=== PATIENT | male | born 1975 | race Caucasian/White ===

== ENCOUNTER 2016-04-08 12:27 | Emergency (ER) | payer BC ==
[2016-04-08 12:57] LABS: Hematocrit 41.6 % (42.0-52.0); Hemoglobin 14.4 gm/dL (13.5-18.0); Mean Cell Volume 86.7 fl (78-100); Mean Corpuscular Hgb Conc 34.6 g/dl (32-36); Mean Platelet Volume 10.6 fl (6.0-9.5); Neutrophil # 2.2 K/mm3 (1.3-6.0); Neutrophil % 49.2 % (42-75.0); Platelet Count 196 K/mm3 (150-450); Red Cell Distribution Width 12.6 % (11.5-14.0); White Blood Count 4.5 K/mm3 (4.0-10.5)
--- NOTE | 2016-04-08 13:05 | ERNOTE ---
Dyspnea - Date Date of Service: 04/08/16 - General Presenting Symptoms: shortness of breath Time Seen by Provider: 04/08/16 12:51 Source: patient, RN notes reviewed Exam Limitations: no limitations - Immun/Allergies/Home Medications Immunizations: IMMUNIZATION HX Immunizations Up to Date Yes Allergies/Adverse Reactions: Allergies No Known Allergies Allergy (Unverified 04/08/16 12:42) Home Medications: HOME MEDICATIONS NK [No Home Medication] 04/08/16 [Last Taken Unknown] - History of Present Illness Narrative: Patient presents to the ER for check of his heart rate and intermittent dyspnea. Patient says that he's been occasionally short of breath off and on it 's been going on for a few weeks. Especially with some activities at times. He is denying any chest pain presently. Denies any cough. He does have a watch that can measure his heart rate and he states that his heart rate has dipped anywhere lower than 40 bpm. His heart rate while in the ER has been greater than 60. He is asymptomatic at this time just thought he come in and get checked out. Denies any fever headache dizziness denies any syncopal episode. Although at times he feels very weak and worn out when he is at work. Denies any swelling of the legs. No nausea vomiting or diarrhea. Family history is significant for mom dying of a clot, he is not sure whether it was a blood clot to the lung or the heart. Severity: mild Associated Symptoms-Dyspnea: Reports: weakness. Denies: fever/chills, sweating , chest pain/discomfort, palpitations, cough, wheezing, leg/calf pain, ankle/ leg swelling, dizziness, lightheadedness, anxiety, tingling of hands/face, muscle spasms, loss of appetite - Patient's Past Medical History Patient History - Medical: No pertinent hx Patient History - Cancer: No Hx of Cancer Patient History - Surgical Procedures: No surgical history - Social History Smoking Status: Former smoker Do you dip or chew tobacco: Yes Physical Exam - Physical Exam General Appearance: Present: wd/wn, alert, no apparent distress Eye Exam: Normal inspection: bilateral Ears, Nose, Throat: Present: normal ENT inspection, normal pharynx Neck: Present: normal inspection, nontender Respiratory: Present: no respiratory distress, normal breath sounds, no accessory muscle use, chest nontender, lungs clear Cardiovascular/Chest: Present: regular rate, rhythm, no murmur, normal peripheral pulses Gastrointestinal/Abdominal: Present: normal bowel sounds, nontender, nondistended, soft, no organomegaly Back Exam: Present: normal inspection Extremity Exam: Present: normal inspection Neurological Exam: Present: alert, oriented, normal mood/affect, no motor/ sensory deficits Skin Exam: Present: normal color, warm/dry ED Progress - Date and Time Seen: Date and Time: 04/08/16 15:44 Patient's feeling better regular discharge home. He be placed on 48 hour Holter. Follow-up family doctor in 2-3 days Make a referral to a obstetrician/gynecologist as an outpatient. Return back to the ER with any change or worsening symptoms Warning signs and symptoms have been reviewed with the patient returned back to the ER with good understanding - Results and Orders Patient's Lab Results:: I have reviewed the patient's lab results. - Vital Signs Patient's Vital Signs:: I have reviewed the patient's vital signs. Vital Signs: Vital Signs 04/08/16 12:37 Temperature 35.5 C L Pulse Rate 74 Respiratory 17 Rate Blood Pressure 127/71 O2 Sat by Pulse 98 Oximetry - EKG EKG: NSR, nonspecific ST T wave changes EKG read: Interp. by me - Progress/Reassessment Chief Complaint: Dyspnea - Transfer of Care Expected Disposition: Discharge Departure Clinical Impression: Lightheaded Dyspnea Qualifiers: Dyspnea type: unspecified Qualified Code(s): R06.00 - Dyspnea, unspecified - Departure Disposition: Home Follow Up Needed Instructions: Holter Monitoring, Near-Syncope, [id number] Referrals: Cali Mitchell MD [Primary Care Provider] - (Follow-up the family provider in 2-3 days)
[2016-04-08 13:15] LABS: ALT 39 U/L (19-67); AST 19 U/L (0-48); Albumin * 4.2 gm/dl (3.4-5.0); Alkaline Phosphatase * 68 U/L (50-170); Anion Gap 10.9 mmol/L (6.8-13.8); BUN/Creatinine Ratio 9.2 (9.0-21.6); Bilirubin, Total 0.9 mg/dL (0.0-1.1); Blood Urea Nitrogen 13 mg/dL (6-23); Ca. Corrected For Albumin 8.4 mg/dL (8.4-10.2); Calcium * 8.9 mg/dL (7.9-10.9); Carbon Dioxide 28.8 mmol/L (24-32.6); Chloride 104 mmol/L (97-106); Glucose * 84 mg/dL (70-110); Potassium 3.7 mmol/L (3.4-4.6); Sodium 140 mmol/L (132-142); Total Protein 7.4 gm/dL (6.2-8.2); Troponin I Less than 0.017 ng/ml (0.00-0.10)
[2016-04-08 13:27] LABS: TSH * 0.965 uIU/mL (0.358-3.74)
[2016-04-08 15:59] VITALS: BP 121/73
== END 2016-04-08 15:58 | disposition home or self-care (01) ==
LOC: ER 12:27
DX: R06.00 Dyspnea, unspecified (principal); R42 Dizziness and giddiness; Z87.891 Personal history of nicotine dependence; F17.220 Nicotine dependence, chewing tobacco, uncomplicated

== ENCOUNTER 2017-02-23 13:30 | Emergency (ER) | payer BC ==
[2017-02-23] MEDS ORDERED: DIPHTH,PERTUSS(ACELL),TET VAC 0.5 ML VIAL IM ONE ×2 (13:43→13:52)
--- NOTE | 2017-02-23 14:02 | ERNOTE ---
Upper Extremity HPI - General Extremities Pain Location: thumb: right Time Seen by Provider: 02/23/17 13:41 Source: patient Exam Limitations: no limitations - Immun/Allergies/Home Medications Immunizations: IMMUNIZATION HX Immunizations Up to Date Yes Allergies/Adverse Reactions: Allergies Allergy/AdvReac Type Severity Reaction Status Date / Time No Known Allergies Allergy Verified 02/23/17 13:39 Home Medications: HOME MEDICATIONS Doxycycline Monohydrate 100 mg PO BID #20 tablet 02/23/17 [Last Taken Unknown] - History of Present Illness Narrative: Patient was working on his semi-truck and one of the [place] came loose and caught his right index finger on the very tip but embedded in the proximal phalanx of the right thumb area. Patient complains of only minimal thumb pain and has full range of motion present. Occurred: just prior to arrival Location of Incident: work Severity: mild Method of Injury: Reports: other - as indicated Loss of Consciousness: Reports: no loss of consciousness Other Injuries: Reports: none Review of Systems - Review of Systems Constitutional: Present: See HPI EYE: Present: no symptoms reported ENT: Present: no symptoms reported Respiratory: Present: no symptoms reported Cardiology: Present: no symptoms reported Gastrointestinal/Abdominal: Present: no symptoms reported Genitourinary: Present: no symptoms reported Musculoskeletal: Present: See HPI Skin: Present: no symptoms reported Neurological: Present: no symptoms reported Endocrine: Present: no symptoms reported Hematologic/Lymphatic: Present: no symptoms reported Psych: Present: no symptoms reported - Patient's Past Medical History Patient History - Medical: No pertinent hx Patient History - Cardiac/Respiratory: No pertinent hx Patient History - Cancer: No Hx of Cancer Patient History - Surgical Procedures: No surgical history - Social History Living Situations: home Do you dip or chew tobacco: Yes Alcohol Use: none Drug Use: none - Immunizations Immunizations Up to Date: Yes Physical Exam - Physical Exam General Appearance: Present: wd/wn, alert, mild distress Head Exam: Present: normal inspection Eye Exam: Normal inspection: bilateral, PERRL: bilateral Ears, Nose, Throat: Present: normal ENT inspection, H, normal pharynx Neck: Present: normal inspection, nontender Respiratory: Present: no respiratory distress, normal breath sounds, no accessory muscle use, chest nontender, lungs clear Cardiovascular/Chest: Present: regular rate, rhythm, no murmur, normal peripheral pulses Gastrointestinal/Abdominal: Present: normal bowel sounds, nontender, nondistended, soft, no organomegaly Rectal Exam: Present: deferred Back Exam: Present: normal inspection, normal range of motion Extremity Exam: Present: normal range of motion, no edema, other - patient has a puncture wound laceration to the proximal phalanx of the right thumb he can see where the spring went in and work came out on the other side. He does have full range of motion and neurovascular is intact Neurological Exam: Present: alert, oriented, normal mood/affect Skin Exam: Present: normal color, warm/dry Lymphatic Exam: Present: no adenopathy ED Progress - Vital Signs Patient's Vital Signs:: I have reviewed the patient's vital signs. Vital Signs: Vital Signs 02/23/17 13:35 Temperature 36.5 C Pulse Rate 71 Respiratory 12 Rate O2 Sat by Pulse 96 Oximetry - X-Ray X-Ray #1 X-Ray: hand Interpretation: Reviewed by me - Progress/Reassessment Chief Complaint: Hand Injury/Pain Plan - Plan Plan: Patient appears to have a small chip fracture of the proximal phalanx of the right thumb. Given the overall nature of the injury and disinclined to sew up that thumb as the risk for abscess is fairly high. We will Steri-Strip the larger of the 2 puncture lacerations and he'll be started on antibiotics and he is to follow-up with his family physician this week. Patient declined anything for pain he also declined a splint, he does agree to see his family physician within a week to 10 days Departure Clinical Impression: Puncture wound, Fracture Thumb laceration Qualifiers: Encounter type: initial encounter Damage to nail status: with damage Foreign body presence: unspecified Laterality: right Qualified Code(s): S61.111A - Laceration without foreign body of right thumb with damage to nail, initial encounter - Departure Disposition: Home self-care Condition: Good Instructions: Puncture Wound, [id number] Referrals: Cali Mitchell MD [Primary Care Provider] - Prescriptions: Doxycycline Monohydrate 100 mg PO BID #20 tablet
[2017-02-23 14:30] VITALS: BP 136/80
== END 2017-02-23 14:31 | disposition home or self-care (01) ==
LOC: ER 13:30
DX: S61.031A Puncture wound without foreign body of right thumb without damage to nail, initial encounter (principal); X58.XXXA Exposure to other specified factors, initial encounter; Y93.89 Activity, other specified; Y92.69 Other specified industrial and construction area as the place of occurrence of the external cause; Y99.0 Civilian activity done for income or pay; S61.111A Laceration without foreign body of right thumb with damage to nail, initial encounter; Z23 Encounter for immunization